=== PATIENT | female | born 1960 ===

== ENCOUNTER 2016-07-26 10:46 | Day surgery (SDC) | payer OTHER ==
[2016-07-25 08:28] VITALS: BMI 24.5
[2016-07-26] MEDS ORDERED: ceFAZolin IV 1 gm in Dextrose 0 GM/0 ML BAG IVPB ONE ×2 (13:08→13:54)
[2016-07-26] MEDS ORDERED: Bupivacaine/Epi 0.25%-1:200,000 10 ml PF inj IJ ONE (13:09)
[2016-07-26] MEDS ORDERED: Lidocaine 2% Inj (20ml) ONE ×2 (13:09→13:55)
--- NOTE | 2016-07-26 14:36 | PCM.SURG1 ---
Surgeon's Initial Post Op Note - Surgeon's Notes Surgeon: Dr. Ragsdale [employer]: Dr. Rosado PGY-2 Type of Anesthesia: Local Pre-Operative Diagnosis: Right breast sebaceous cyst Operative Findings: Right breast sebaceous cyst Post-Operative Diagnosis: Right breast sebaceous cyst Operation Performed: Right breast sebaceous cyst excision Specimen/Specimens Removed: Right breast sebaceous cyst Estimated Blood Loss: EBL {In ML}: 10 Blood Products Given: N/A Drains Used: No Drains Post-Op Condition: Good Date of Surgery/Procedure: 07/26/16 Time of Surgery/Procedure: 14:34
[2016-07-26 16:25] VITALS: BP 127/80; PULSE 62; RESP 18; TEMP 98; O2SAT 100
--- NOTE | 2016-07-26 17:55 | OP ---
PROCEDURE DATE: 07/26/2016 PREOPERATIVE DIAGNOSIS: Sebaceous cyst of the right breast approximately 2 cm x 2 cm size. POSTOPERATIVE DIAGNOSIS: Sebaceous cyst of the right breast approximately 2 cm x 2 cm size. PROCEDURES: Excision of sebaceous cyst of the right breast. SURGEON: Mingo Ragsdale M.D. TRAY PACKER: Lakeshia Rosado MD, PGY-2 resident. ANESTHESIA: Local anesthesia. ESTIMATED BLOOD LOSS: Around 5 mL. DRAINS: None. PATHOLOGY: Sebaceous cyst. COMPLICATIONS: None. INTRAOPERATIVE FINDINGS: The patient had approximately 2 cm x 2 cm sebaceous cyst of the right breas t. INTRAOPERATIVE STEPS: This 56-year-old female who was diagnosed with a sebaceous cyst of the right b reast and the patient was consented for excision of that cyst, was brought to the OR, placed supine o n the operating table. After injecting the local anesthesia, the right breast was prepped and draped in the usual sterile fashion. An elliptical incision was made. After incising skin and subcutaneou s tissue, upper and lower flap was created, the sebaceous cyst was completely excised and it was sent off the table for the pathology. The wound was irrigated. Wound was closed in 2 layers, the subcut aneous with 3-0 Vicryl, skin with a 4-0 Monocryl. Dry sterile dressing was applied. The patient fili erated the procedure well. Count of instruments and gauze was correct. There was no apparent compli cation. The patient was sent to postanesthesia care unit in stable condition. Mingo Ragsdale MD cc: [id number] TT: 07/26/2016 17:54:42 jn
== END 2016-07-26 15:00 | disposition home or self-care (01) ==
LOC: C.SDS 10:46
PROVIDERS: ATTEND Surgery Surgical Critical Care
DX: N60.81 Other benign mammary dysplasias of right breast (principal)